=== PATIENT | male | born 1995 | race Caucasian/White ===

== ENCOUNTER 2023-05-26 15:21 | Emergency (ER) | payer BC ==
[~2023-05-26] VITALS: Ht 177.8 cm; Wt 108.5 kg
[2023-05-26 15:25] VITALS: BP 134/75; PULSE 87; RESP 16; TEMP 97.3; O2SAT 97
[2023-05-26 16:46] LABS: BASOPHILS % (AUTO) 0.5 % (0.0-2.0); EOSINOPHILS # (AUTO) 0.1 K/uL (0-0.4); EOSINOPHILS % (AUTO) 0.8 % (0.0-4.0); HEMATOCRIT 50.2 % (36-52); HEMOGLOBIN 17.5 g/dL (12.0-18.0); LYMPHOCYTES # (AUTO) 1.6 K/uL (2.0-11.5); LYMPHOCYTES % (AUTO) 19.8 % (20.5-51.1); MEAN CORPUSCULAR HEMOGLOBIN 31 pg (27-31); MEAN CORPUSCULAR HGB CONC 35 g/dL (33-37); MEAN CORPUSCULAR VOLUME 89.3 fL (80-94); MONOCYTES # (AUTO) 0.5 K/uL (0.8-1.0); MONOCYTES % (AUTO) 6.8 % (1.7-9.3); NEUTROPHILS # (AUTO) 5.8 K/uL (1.8-7.7); NEUTROPHILS % (AUTO) 72.1 % (42.2-75.2); PLATELET COUNT (AUTO) 325 K/uL (140-450); RED BLOOD CELL COUNT(AUTO) 5.63 MIL/uL (4.20-6.10); RED CELL DISTRIBUTION WIDTH 13.5 % (11.6-13.7)
[2023-05-26 16:55] LABS: ANION GAP 13.1 (8-16); CALCIUM 9.7 mg/dL (8.5-10.1); CARBON DIOXIDE 29.6 mmol/L (21-32); POTASSIUM 3.7 mmol/L (3.5-5.1)
[2023-05-26 17:10] LABS: ALBUMIN 4.3 g/dL (3.4-5.0); BILIRUBIN,DIRECT 0.1 mg/dL (0.0-0.3); FREE T4 (FREE THYROXINE) 1.23 ng/dL (0.76-1.46); MAGNESIUM 2.5 mg/dL (1.8-2.4); THYROID STIMULATING HORMONE 0.85 uIU/mL (0.34-3.74); TOTAL BILIRUBIN 0.5 mg/dL (0.0-1.0); TOTAL PROTEIN, SERUM 9.1 g/dL (6.4-8.2)
[2023-05-26 17:44] LABS: APPEARANCE,URINE CLOUDY (CLEAR); BILIRUBIN,URINE 1+ (NEGATIVE); BLOOD, URINE NEGATIVE (NEGATIVE); COLOR,URINE OTHER (YELLOW); LEUKOCYTE ESTERASE ,URINE NEGATIVE (NEGATIVE); NITRITE, URINE NEGATIVE (NEGATIVE); PH,URINE 7.5 (5.0-9.0); PROTEIN,URINE TRACE (NEGATIVE); UGLUCOSE NEGATIVE (NEGATIVE)
[2023-05-26 17:54] LABS: AMPHETAMINE, URINE NEGATIVE ng/ml (NEG <=1000); BARBITURATE, URINE NEGATIVE ng/ml (NEG <=200); BENZODIAZEPINE, URINE NEGATIVE ng/mL (NEG <=200); CANNABINOID, URINE NEGATIVE ng/mL (NEG <=50); COCAINE, URINE NEGATIVE ng/mL (NEG <=300); OPIATE, URINE NEGATIVE ng/mL (NEG <=2000); PHENCYCLIDINE SCREEN,URINE NEGATIVE ng/mL (NEG <=25)
[2023-05-26 17:56] LABS: ICTOTEST NEGATIVE (NEGATIVE)
== END 2023-05-26 19:03 | disposition home or self-care (01) ==
LOC: MED 15:21
DX: F41.9 Anxiety disorder, unspecified (principal); R25.1 Tremor, unspecified; R63.0 Anorexia; Z79.899 Other long term (current) drug therapy
CPT/HCPCS: 36415; 71045; 80048; 80076; 80305; 81003; 82550; 82948; 83690; 83735; 84439; 84443; 85025; 99284